=== PATIENT | female | born 1995 | race Caucasian/White ===

== ENCOUNTER 2021-12-25 16:56 | Inpatient (IN) | payer BC, SELFPAY ==
[2021-12-25 17:26] VITALS: BP 117/68; PULSE 93
[2021-12-25 17:27] VITALS: RESP 14; TEMP 36.6
[2021-12-25 17:35] VITALS: BMI 31.1
--- NOTE | 2021-12-25 17:58 | PM.OBHPLI ---
OB - H&P: HPI Labor/Induction History of Present Illness Time Seen by Provider: 17:30 Date Seen: 12/25/21 Chief Complaint: The patient is a 26 year old 1 para 0 at 41 6/7 weeks gestation by 9wk US not c/w LMP, who presents for postdates cervical ripening/induction. Chief complaint: Induction of Labor : 1 Para: 0 Narrative: Bibi Alvarez is a 26 year old 1 para 0 at 41 6/7 weeks gestation by 9wk US not c/w LMP, who presents for postdates cervical ripening/induction. itself has overall been uncomplicated except she was noted to be anemic in first trimester with low B12 and B12 supplement started with improvement. Iron deficiency anemia developed in 3rd trimester and started on iron. History of Present Dating criteria: based on 1st trimester US only care: good care Ultrasounds: normal 1st trimester US, normal mid trimester US and other (She had US at 36 5/7 wks gestation due to measuring greater then dates and EFW 84% and normal SRINIVAS.) Medical complications: none Labs Blood type: O (+) positive Rubella: immune RPR/VDLR: nonreactive GBS status: negative HBsAG: negative Review of Systems Const: Reports: other (no recent cough or cold symptoms); Denies: fever or chills Eyes: Denies: change in vision or blurry vision Neuro: Denies: headache Meds Home Medications and Allergies Home Medications Medication Instructions Recorded Confirmed Type cyanocobalamin (B12)-cobamamide neo sublingual 12/25/21 History 5,000 mcg-100 mcg sublingual lozenge (B12) ferrous sulfate 325 mg (65 mg mg 12/25/21 History iron) tablet (FeroSul) vit no.95-ferrous 1 tab PO DAILY 12/25/21 12/25/21 History fumarate 28 mg-folic acid 800 mcg tablet ( Multivitamins) Allergies Allergy/AdvReac Type Severity Reaction Status Date / Time No Known Drug Allergies Allergy Verified 12/25/21 18:01 OB - H&P: Exam Physical Exam: Vital signs: Temp Pulse Resp BP 97.8 F 93 14 117/68 12/25/21 17:27 12/25/21 17:26 12/25/21 17:27 12/25/21 17:26 Constitutional: Constitutional: no acute distress Routine HEENT Exam: Head: Present normal inspection Eye: Present normal appearance ENT: Present mucous membranes moist and nares patent Routine Respiratory Exam: Respiratory: Present CTA bilaterally Routine Cardiovascular Exam: Cardiovascular: RRR Detailed Labor and Delivery Exam: Patient Gravid: yes Dilation (cm): 1 Effacement (%): 50 Cervix position: posterior Consistency: medium Contraction frequency (min): 5 Comments: she is not feeling contractions Fetus (Single): Station: -3 Monitor Accelerations: Present Monitor Decelerations: None Correction Variability: Average (6-10) Fetus B: heart rate baseline: 120 Routine Extremities Exam: Extremities: Present pedal edema (1+) Routine Psychiatric Exam: Present normal affect, normal thought process, cooperative, good insight and good judgment OB - Problem Based A/P Additional Plan (1) : Status: Acute Plan Previously discussed various induction techniques and variation in courses. Again reviewed and pt and without ?'s. Cervical ripening tonight with Cook catheter. This was placed without difficulty. Plan cytotec once removed in 12 hours or if comes out prior. there is pitocin shortage and I have previously reviewed this with pt in clinic. Delivery/Labor/Induction Plan Plan: induction Induction method: Intracervical balloon catheter
[2021-12-25 18:43] LABS: SARS PCR* Negative SARS-CoV-2 (Negative)
[2021-12-25 19:43] LABS: Basophils Absolute Auto 0.01 K/uL (0.00-0.30); Basophils Percent Auto 0.1 % (0.0-3.0); Eosinophils Absolute Auto 0.03 K/uL (0.00-0.50); Eosinophils Percent Auto 0.3 % (0.0-7.0); Hematocrit 32.3 % (33.0-51.0); Hemoglobin* 11.1 gm/dL (12.0-16.0); Immature Granulocytes Abs Auto 0.05 K/uL (0.00-0.30); Lymphocytes Absolute Auto 1.82 K/uL (0.90-2.90); Lymphocytes Percent Auto 20.6 % (20-44); Mean Corpuscular HGB Conc 34 gm/dL (32-36); Mean Corpuscular Hemoglobin 33 pg (26-34); Mean Corpuscular Volume 95 fL (80-100); Monocytes Percent Auto 8.3 % (0.0-11.0); Neutrophils Percent Auto 70.1 % (42.0-72.0); Platelet Count* 253 K/uL (140-440); RDW Coefficient of Variation % 12.5 % (11.5-15.5); Red Blood Count 3.41 m/uL (4.00-5.20); White Blood Count* 8.84 K/uL (4.50-11.00)
[2021-12-25 19:45] LABS: Slide Review Reflex No
[2021-12-25 20:53] VITALS: BP 107/52; PULSE 83; RESP 18; TEMP 36.5
[2021-12-26] VITALS (56 sets, daily range): BP systolic 82–142; BP diastolic 43–72; PULSE 57–129; RESP 16–18; TEMP 36.3–36.8; O2SAT 92–100
[2021-12-26] MEDS: hydrOXYzine pamoate 25 MG CAPSULE 100 MG PO (02:09)
[2021-12-26] MEDS: MORPHINE 10 MG/ML inj IM (02:10)
[2021-12-26] MEDS: miSOPROStoL 25 MCG/0.25 TABLET VAGINAL ×2 (08:16→11:22)
--- NOTE | 2021-12-26 10:07 | P.OBPN_ITS ---
Subjective Time Seen by Provider: 10:00 Date Seen: 12/26/21 Narrative: Pt is 26yo G1 at 41 wks gestation admitted last evening for cervical ripening with cook catheter. This was placed and removed this morning after 12 hours. pt reports she had significant cramping overnight with catheter. Not really feeling contractions now that catheter is removed. 1st dose vaginal cytotec placed 8:16am per chart. Objective Vital Signs: Last Vital Signs Temp 98.3 F 12/26/21 08:14 Pulse 112 H 12/26/21 08:14 Resp 16 12/26/21 08:14 BP 112/67 12/26/21 08:14 Pelvic Exam Comments: per nursing notes, last check prior to cytotec /-3 Contractions Monitor mode: External Contraction Frequency: q5-7, pt not really feeling contractions Contraction pattern: Irregular Contraction intensity: Mild Assessment Assessment: induction ongoing Station: -3 Status: Category l Heart Rate Baseline: 130 Penitentiary Variability: Moderate (6-25) Monitor Accelerations: Present Monitor Decelerations: None Plan Plan: continue with induction with cytotec protocol. discussed with pt and and all ?'s answered.
[2021-12-26] MEDS: fentaNYL 100 MCG/2 ML inj IVP ×2 (21:19→22:12)
[2021-12-26] MEDS: SODIUM CHLORIDE 0.9 % (FLUSH) 10 ML SYRINGE IVF (21:23)
--- NOTE | 2021-12-26 21:48 | P.OBPN_ITS ---
Subjective Time Seen by Provider: 21:40 Date Seen: 12/26/21 Narrative: 26yo G1at 41wks gestation here for postdates induction. Cook catheter placed last night and removed this morning. She recieved cytotec x 2 doses and began jorge luis frequently enough she did not meet criteria for 3rd dose. Pt continued to get more uncomfortable reporting increased intensity with contractions throughout the day. There is Pitocin shortage so use is being reserved for certain scenarios absolutely necessary. Since she appeared to be transitioning with increasing contraction intensity and frequency, we continued monitoring. Pt had been slowly changing and anticipated into active labor but now is still 5cm. Discussed AROM and pt in agreement. She did request fentanyl first. see below. Objective Exam: Pt clearly uncomfortable with contractions, on hands and knees breathing through and moaning with contractions. comfortable between. Vital Signs: Last Vital Signs Temp 98.0 F 12/26/21 17:52 Pulse 85 12/26/21 21:09 Resp 16 12/26/21 14:18 BP 106/59 L 12/26/21 21:09 Pulse Ox 98 12/26/21 21:29 Pelvic Exam Dilation (cm): 5 Effacement (%): 80 Station: -2 Comments: stretchy Contractions Monitor mode: External Contraction Frequency: pt on hands and knees so ctxs not picking up great but appear q3 Contraction pattern: Irregular Contraction intensity: Strong/Firm (per nursing palpation) Assessment Station: -3 Status: Category l Heart Rate Baseline: 130 Crackling Press Operator Variability: Moderate (6-25) Monitor Accelerations: Present Monitor Decelerations: Variable Tracing Comments: brief minimal variability after fentanyl, now back to moderate variability Plan Plan: AROM performed with clear fluid. Discussed pain control, pt requesting epidural and anesthesia notifed. All ?'s answered
[2021-12-26] MEDS: LIDOCAINE 2% (PF) 5 ML VIAL EPIDURAL (22:15)
[2021-12-26] MEDS: ROPIVACAINE 0.2 % PF 10 ML INJ 20 MG EPIDURAL (22:15)
[2021-12-26] MEDS: ROPIVACAINE 0.2% 100 ml 100 ML 12 MG EPIDURAL (22:15)
--- NOTE | 2021-12-26 22:41 | PM.ANBPRC ---
[facility] Medical History (Updated 12/25/21 @ 18:15 by Minda Cortez DO) No significant medical problems Surgical History (Updated 12/25/21 @ 18:06 by Minda Cortez DO) No history of previous surgery Social History (Updated 12/25/21 @ 18:10 by Minda Cortez DO) Narrative: . 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 [email or web address] Lives in [place] No alcohol, tobacco or drug use Smoking Status: Never smoker Meds Home Medications and Allergies Home Medications Medication Instructions Recorded Confirmed Type cyanocobalamin (B12)-cobamamide 1 neo sublingual DAILY 12/25/21 12/26/21 History 5,000 mcg-100 mcg sublingual lozenge (B12) ferrous sulfate 325 mg (65 mg 325 mg PO DAILY 12/25/21 12/26/21 History iron) tablet (FeroSul) vit no.95-ferrous 1 tab PO DAILY 12/25/21 12/25/21 History fumarate 28 mg-folic acid 800 mcg tablet ( Multivitamins) Allergies Allergy/AdvReac Type Severity Reaction Status Date / Time No Known Drug Allergies Allergy Verified 12/25/21 18:01 Results Vital Signs Vital Signs: Last Vital Signs Temp 97.5 F L 12/26/21 21:00 Pulse 97 12/26/21 22:41 Resp 16 12/26/21 14:18 BP 89/44 L 12/26/21 22:41 Pulse Ox 96 12/26/21 22:38 Weight: 87.498 kg Height: 167.64 cm Anesthesia Procedures Epidural Insertion Patient Location: OB Start Time: 22:00 Stop Time: 22:42 Start Date: 12/26/21 Stop Date: 12/26/21 Reason for Block: procedure for pain Patient Position: sitting Performed By: Mahad Spear Preanesthetic Checklist: IV checked, risks and benefits discussed, surgical consent, monitors and equipment checked, pre-op evaluation, timeout performed and anesthesia consent Prep: chlorhexidine gluconate Monitoring: blood pressure monitoring, continuous pulse oximetry and heart rate Approach: midline Vertebral Space: lumbar (1-5) Needle Type: Tuohy needle Injection Technique: continuous catheter Needle gauge: 17 Needle Length (cm): 10 cm Needle Insertion Depth (cm): 7 Catheter Gauge: 19 Catheter Type: multi-orifice Catheter at skin depth (cm): 13 Test Dose Result: negative and lidocaine 1.5% with epinephrine 1 to 200,000
[2021-12-26] MEDS: PHENYLEPHRINE 100 MCG/ML SYRINGE IVP ×4 (22:42→23:40)
[2021-12-26] MEDS: ePHEDrine sulfate 5 MG/ML inj 10 MG IVP ×2 (22:54→22:59)
--- NOTE | 2021-12-26 23:01 | PM.OBPNL ---
Subjective Time Seen by Provider: 23:02 Date Seen: 12/26/21 Narrative: pt received epidural and immediately after became hypotensive to 89/44 and then developed heart tone decel which was prolonged and down to jose alejandro of 80 for a second and then remained in 90-100 range for approximaltely 5 min. Bp during this time was checked as decel was first decreasing and was 82/43. She was placed on left side, given IVF bolus, 2 doses phenylephrine. FHT improved to 90-100 and about [address] through 5 min period went up to 110 for 10 sec but then came back down to 90's range. she was switched to right side during this time and given 3rd phenylephrine and pseudoephedrine. FHT's did improve into 130's. I checked her cervix and cervix is now coming into more mid position but overall unchanged at 5/80%. Objective Exam: pt comfortable with epidural see above and below notes Vital Signs: Last Vital Signs Temp 97.5 F L 12/26/21 21:00 Pulse 87 12/26/21 22:59 Resp 16 12/26/21 14:18 BP 110/66 12/26/21 22:59 Pulse Ox 100 12/26/21 22:58 Comments: see above Pelvic Exam Dilation (cm): 5 Effacement (%): 80 Station: -2 Contractions Monitor mode: External Assessment Assessment: induction ongoing Status: Category l (now after decel as above had improved and back to being reactive) Heart Rate Baseline: 130 Skilled Nursing Variability: Moderate (6-25) Monitor Accelerations: Present Monitor Decelerations: Variable Plan Plan: Will confirm FHT remain improved and if so, start pitocin. There is a pitocin shortage so we are not using immediately as we typically would but at this point we need to get pt into active labor. Discussed with pt and RN. All ?'s answered.
[2021-12-26] MEDS: OXYTOCIN 30 unit/500 ML in NS 30 UNIT/500 ML BAG IVPB (23:18)
[2021-12-26] MEDS: LACTATED RINGERS 1000 ML 1,000 ML 125 ML IV (23:31)
--- NOTE | 2021-12-26 23:46 | PM.OBPNL ---
Subjective Time Seen by Provider: 11:40 Date Seen: 12/26/21 Narrative: Pitocin started 2317. contractions not always flower picker well and close together q2min at time so I went into room to discuss placing IUPC for better pitocin adjustment and monitoring when pt developed 3 recurrent late decels in a row, she was turned to right side more as was 1/2 on back/1.2 right. BP checked and 95/52, phenylephrine given. FHT's improved. IUPC placed. cervix unchanged except head now applied better to cervix. Will adjust pitocin for adequate MVU's as FHT's tolerate. Discussed with pt and all questions answered. Plan discussed with RN. Objective Vital Signs: Last Vital Signs Temp 97.4 F L 12/26/21 23:00 Pulse 83 12/26/21 23:45 Resp 16 12/26/21 14:18 BP 109/56 L 12/26/21 23:45 Pulse Ox 100 12/26/21 23:43 Pelvic Exam Dilation (cm): 5 Effacement (%): 80 Station: -2 Contractions Monitor mode: External Assessment Labor Progress: see above Plan Plan: see above
[2021-12-27] VITALS (61 sets, daily range): BP systolic 91–132; BP diastolic 51–76; PULSE 62–120; RESP 16; TEMP 36.4–37; O2SAT 90–100
--- NOTE | 2021-12-27 00:31 | PM.OBPNL ---
Subjective Time Seen by Provider: 00:30 Date Seen: 12/27/21 Narrative: Pitocin started and pt developed minimal variablity with recurrent late decels without accels. With the pitocin, MVU's 145-185. Pitocin stopped and late decels resolved and strip now reactive with moderate variablity, +accels and no decels. MVU's 120. Discussed situation with pt. I called and reviewed with OB surgeon carton stamper who agreed with restarting pitocin and monitoring. Discussed possibility of c/s with pt if baby not tolerate pitocin to help achieve cervical change. All ?'s answered. Objective Exam: see above Vital Signs: Last Vital Signs Temp 97.4 F L 12/26/21 23:45 Pulse 105 H 12/27/21 00:29 Resp 16 12/26/21 14:18 BP 109/66 12/27/21 00:29 Pulse Ox 100 12/27/21 00:28 Comments: see above Pelvic Exam Station: - Contractions Monitor mode: External Contraction pattern: Regular Assessment Station: -3 Status: Category l (now after decel as above had improved and back to being reactive) Heart Rate Baseline: 130 Tracing Comments: see above Plan Plan: see above
--- NOTE | 2021-12-27 02:00 | PM.OBPNL ---
Subjective Time Seen by Provider: 01:55 Date Seen: 12/27/21 Narrative: recurrent late decelerations with low dose pitocin. inadequate MVU's. Pt tried multiple position changes. Cervix unchanged and still 5cm. Objective Exam: comfortable, resting Vital Signs: Last Vital Signs Temp 97.4 F L 12/26/21 23:45 Pulse 74 12/27/21 01:51 Resp 16 12/26/21 14:18 BP 105/59 L 12/27/21 01:51 Pulse Ox 100 12/27/21 01:58 Pelvic Exam Dilation (cm): 5 Effacement (%): 80 Station: -2 Comments: unchanged Contractions Monitor mode: External Contraction Frequency: q2-3min Contraction pattern: Regular Contraction intensity: Strong/Firm (per nursing palpation) Assessment Assessment: induction ongoing Station: -3 Status: Category ll Heart Rate Baseline: 130 Poultry Field Service Technician Variability: Minimal (3-5) Monitor Accelerations: Episodic Monitor Decelerations: Recurrent Tracing Comments: With pitocin going at 2, FHT's 130's minimal variability, had accel initially after first late deceleration but then recurrent lates without accels present. Pitocin turned off and variability immediately improved to moderate, +accels and recurrent late decelerations resolved. Plan Plan: Recurrent late decelerations with low dose pitocin. Inadequate MVU's and no cervical exchange operator several hours. pt has had cook catheter, cytotec, AROM and fetus intolerant to pitocin. Pt tried multiple position changes. Cervix unchanged and still 5cm. Discussed with pt and recommended c/s as unable to get pt into active labor as intolerance of pitocin and inadequate MVU's. I called OB surgeon television cameraman Dr Tristan who agrees with performing c/s and is on her way in. OR crew notified by staff. pt given opportunity to ask questions and reports no questions. She is in agreement with plan.
--- NOTE | 2021-12-27 02:35 | P.OBCN_ITS ---
OB - CN: HPI Date of Consult Date Seen: 12/27/21 Consult date: 01/19/22 Requesting Physician: Minda Cortez DO Primary Care Provider: Not a Local Provider Consult Narrative Reason for consult: nonreassuring FHTs Narrative: The patient is a 26 year old G 1 P 0 at 41 1/7 weeks gestation that was admitted to the Center on 12/25/21 for IOL due to post term dates. I was consulted due to monitoring showing recurrent late decelerations and patient still far from delivery. IOL started with placement of cook catheter, cytotec today during the day, AROM and currently unsuccessful trial of oxytocin x2. Currently NST reactive, but as soon as they turn on oxytocin baby starts to have late decelerations. Patient has remained at 5cm cervical dilation. History of Present Dating criteria: based on 1st trimester US only care: good care Ultrasounds: normal 1st trimester US History History 1 Elective abortions Para 1 Spontaneous abortions Hx # Term Pregnancies Ectopic pregnancies Hx # Pregnancies Multiple births Number of Living Children 0 Labs Blood type: O (+) positive Rubella: immune RPR/VDLR: nonreactive GBS status: negative HBsAG: negative OB Labs: Lab Assessment Start: 12/25/21 17:06 Freq: ONCE Status: Complete Protocol: PC.OBGBS Activity Type Activity Date Activity User E-sign Co-sign Detail Recorded Client Recorded Date Recorded By Document 12/25/21 17:34 LP [id number] 12/25/21 17:34 LP 12/25/21 17:34 Lab Assessment GBS neg Previous Milam with Invasive GBS No Does Patient Meet Criteria No No Treatment Needed OK Maternal Blood Type O Maternal RH Factor Positive Evaluate Maternal Rubella Immune Status Immune Hepatitis B Surface Antigen Negative Maternal HIV Status Negative Maternal Syphillis (RPR) Status Negative Are Labs Available Yes PFSH PFS Medical History (Updated 01/06/22 @ 00:01 by ) No significant medical problems Surgical History (Updated 01/06/22 @ 00:01 by ) No history of previous surgery Social History (Updated 12/25/21 @ 18:10 by Minda Cortez DO) Narrative: . 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 [place] No alcohol, tobacco or drug use Smoking Status: Never smoker Meds Home Medications and Allergies Home Medications Medication Instructions Recorded Confirmed Type cyanocobalamin (B12)-cobamamide 1 neo sublingual DAILY 12/25/21 12/26/21 History 5,000 mcg-100 mcg sublingual lozenge (B12) vit no.95-ferrous 1 tab PO DAILY 12/25/21 12/25/21 History fumarate 28 mg-folic acid 800 mcg tablet ( Multivitamins) Allergies Allergy/AdvReac Type Severity Reaction Status Date / Time No Known Drug Allergies Allergy Verified 12/25/21 18:01 OB - H&P: Exam Physical Exam: Vital signs: Temp Pulse Resp BP Pulse Ox 98 F 74 16 105/59 L 100 12/27/21 01:45 12/27/21 01:51 12/26/21 14:18 12/27/21 01:51 12/27/21 02:03 OB - CN: A/P Assessment and Plan (1) : Status: Resolved Plan Agree with delivery. Discussed procedure with patient, informed consent reviewed discussed risk sof surgery such as bleeding, infection, damage to nearby organs, blood clots. Patient in agreement with surgery. Will proceed.
[2021-12-27] MEDS: LACTATED RINGERS 1000 ML 1,000 ML 125 ML IV ×2 (02:45→04:58)
[2021-12-27] MEDS: OXYTOCIN 30 unit/500 ML in NS 30 UNIT/500 ML BAG 100 UNIT IVPB (03:07)
--- NOTE | 2021-12-27 04:16 | P.OBPRC_ITS ---
Procedure Pre-op/Post-op diagnoses: Pre-Op/Post-Op Diagnoses Operation Date: 12/27/21 02:30 <No data on this case meets the specified criteria> Procedure Done: only Procedure Details: Procedures Operation Date: 12/27/21 02:30 Actual Procedure Side Surgeon p Section Leeanne Farley MD Estimated blood loss (mL): 1,500 Disposition: floor Anesthesia type: Epidural Complications: dystocia upon delivery requiring vacuum assistance. hemorrhage- uterine atony OB Delivery Proc Additional Procedures Tubal Ligation at the time of : No Procedure Details: PREOPERATIVE DIAGNOSES: 1. Intrauterine at 41 1/7 weeks' gestation. 2. intolerance of labor, far from delivery POSTOPERATIVE DIAGNOSES: 1. Intrauterine at 41 1/7 weeks' gestation. 2. intolerance of labor, far from delivery 3. dystocia, vacuum assistance needed 4. hemorrhage-uterine atony NAME OF PROCEDURE: Primary low transverse vacuum assisted delivery ANESTHESIA: Epidural COMPLICATIONS: dystocia upon delivery, hemorrhage ESTIMATED BLOOD LOSS: 1500mL DRAINS: Soto to gravity. FINDINGS: Live-born male , OA presentation, Apgars 7 and 7 at 1 and 5 minutes respectively. weight 9 lb 2 oz. PROCEDURE: After obtaining informed consent, the patient was taken to the operating room where epidural anesthesia was found to be adequate. She was prepared and draped in the normal sterile fashion in the dorsal supine position with a leftward tilt. A Pfannenstiel skin incision was made with a scalpel about 2 cm above symphysis pubic bone, 8-10 cm in length. This incision was carried down to the underlying layer of fascia with the Bovie and scalpel. The fascia was incised in the midline and the incision extended laterally. The rectus muscles were then in the midline and blunt entrance to the peritoneum obtained easily. The Shahram O retractor was then placed into the incision. The lower uterine segment was then incised in a transverse fashion with the scalpel. Upon entry into the uterus, clear amniotic fluid was noted. The uterine incision was extended cephalo caudally with blunt finger fractionation. occiput was noted to be OA and assistance made to turn head to OT position, with fundal pressure, return to OA presentation and no further movement of head. This was attempted on 2 occasions unsuccessfully, I felt like I had adequate space, but to further make space and liberate any additional tension the left rectus muscle was opened up about 1cm with bandage scissors. Again, I tried to flip baby to OT position as well as the body, but with fundal pressure baby flexed head and turned back to OA presentation. Decision was made to utilize a vacuum for assistance, this was placed at the presenting occiput and suction created to the green area of pressure and with 1 pull delivery of the head was obtained with further assistance the rest of the body delivered atraumatically. Vacuum pressure was released right away.The cord was doubly clamped and cut, and the infant was handed off the field to [facility] for evaluation. Please see Dr. Cortez for details of evaluation. The placenta was delivered spontaneously with umbilical cord traction and fundal massage. The uterus was cleared of all clots and debris. Uterine atony identified. IV Pitocin was already running, Methergine was given x2. The uterine incision was reapproximated in a running locking fashion with a 0 Vicryl suture. A 2nd layer of the same suture was used to imbricate in horizontal fashion. On the left side of the hysterotomy there was some persistent bleeding that was cristopher ated with interrupted sutures of 2-0 chromic. Hemostasis was secured. The gutters were inspected and cleared of blood clot. All instruments and retractors were removed. The subfascial tissues were carefully inspected and hemostasis assured. Peritoneum was re approximated utilizing 3-0 Vicryl. The fascia was reapproximated in a running fashion with a looped 0 Vicryl suture. The subcutaneous tissues were inspected and hemostasis was assured. The subcutaneous fat layer was reapproximated with interrupted sutures of 3-0 Vicryl. The skin was closed in a subcuticular fashion with 4-0 Vicryl. LiquiBand and dressing were applied. The patient tolerated the procedure well. Sponge, lap, needle, and instrument counts were reported as correct x2. The patient was taken to the recovery room, awake, and in stable condition. She did receive 2 grams of IV Ancef preoperatively, 1 g of TXA was also given at the end of case. QBL at the end of procedure was 1000mL, after drape removal, uterine massage confirmed a well contracted uterus at 1 below umbilicus, but a large amount of blood clots and with what was seen at the bed, I raised QBL/EBL to 1500mL. No persistent heavy bleeding noted. I will order a follow up hemoglobin later today. Mom and baby boy stable at the end of case at the OR. Will follow up closely.
--- NOTE | 2021-12-27 04:21 | W.ANESCHARGE ---
Anesthesia Charges Start Date/Time Anesthesia Start Date: 12/27/21 Anesthesia Start Time: 02:45 Stop Date/Time Anesthesia Stop Date: 12/27/21 Anesthesia Stop Time: 04:15 Summary Emergency: Yes
[2021-12-27] MEDS: KETOROLAC 30 MG/ML inj IVP (09:30)
[2021-12-27 11:45] LABS: Hemoglobin* 9.9 gm/dL (12.0-16.0)
[2021-12-27] MEDS: IBUPROFEN 600 MG TABLET PO ×2 (15:39→22:33)
[2021-12-27] MEDS: ACETAMINOPHEN 500 MG TABLET 1000 MG PO (18:38)
[2021-12-28 04:36] VITALS: BP 90/56; PULSE 73; RESP 16; TEMP 36.9; O2SAT 96
[2021-12-28] MEDS: IBUPROFEN 600 MG TABLET PO ×3 (04:44→21:46)
[2021-12-28 07:00] LABS: Hemoglobin* 8.4 gm/dL (12.0-16.0)
--- NOTE | 2021-12-28 08:11 | P.OBPN_ITS ---
OB - PN: A/P Assessment and Plan (1) Status post delivery: Status: Acute (2) Acute posthemorrhagic anemia: Status: Acute (3) Lactating mother: Status: Acute (4) examination following delivery: Status: Acute Plan 26 yo G1 now P1 Post- Day 1 - routine post- care Acute Anemia r/t intrasurgical hemorrhage of 1500ml - Iron 325mg daily (pt prefers to take her own) - support if needed Plant to discharge home tomorrow Plan day: 1 Plan: routine postop care OB - PN: Subj Subjective Time Seen by Provider: 08:12 Date Seen: 12/28/21 Interval history: Bibi is a 26 year old G 1 now P 1 at 41 0/7 weeks gestation that was admitted to the Center on 12/25/21 for labor. She had an primary delivery r/t arrest of dilation, complicated by 1500 EBL intrasurgical hemorrhage. Denies any light headedness, shortness of breath or nausea. She delivered a viable male , Lazaro. She is breast feeding. the patient has done well. Patient comments: no complaints, pain well controlled, tolerating diet and flatus present [place] status: and doing well feeding status: exclusively OB - PN: Obj Exam Physical Exam: Vital signs: Temp Pulse Resp BP Pulse Ox O2 Del Method 98.4 F 73 16 90/56 L 96 12/28/21 04:36 12/28/21 04:36 12/28/21 04:36 12/28/21 04:36 12/28/21 04:36 12/28/21 04:36 Constitutional: Constitutional: no acute distress Routine HEENT Exam: Head: Present normocephalic Eye: Present normal appearance Routine Neck Exam: Neck: Present full ROM Routine Respiratory Exam: Respiratory: Present CTA bilaterally Routine Cardiovascular Exam: Cardiovascular: Present RRR Routine Abdominal Exam: Abdominal: Present hypoactive bowel sounds (present but quiet), soft and tenderness Fundus: Present firm (U/U) Routine Exam: Comments: Deferred Routine Extremities Exam: Extremities: Present full ROM; Absent pedal edema Routine Back/Spine/Pelvis Exam: Back/Spine: Present full ROM Routine Skin Exam: Skin: Present dry and warm; Absent rash Routine Neurological Exam: Neurological: Present alert and oriented X3 Detailed Neurological Exam: Coma Scale: Eye Opening: Spontaneous (4) Verbal Response: Orientated (5) Routine Psychiatric Exam: Psychiatric: Present normal affect, normal thought process, cooperative, good insight and good judgment Wound Management: Method: adhesive Examination: Present clean, dry and intact; Absent bloody drainage or serosanguinous drainage OB - PN: Obj Data Labs Labs: Laboratory Results - last 24 hr 12/27/21 12/28/21 11:40 06:51 Hgb 9.9 L 8.4 L
[2021-12-28] MEDS: DOCUSATE SODIUM 100 MG CAPSULE PO (08:59)
[2021-12-28] MEDS: FERROUS SULFATE 325 MG TABLET PO (08:59)
[2021-12-28 09:05] VITALS: BP 95/63; PULSE 103; RESP 16; TEMP 36.4; O2SAT 100
[2021-12-28] MEDS: SIMETHICONE 80 MG TAB.CHEW PO (11:51)
[2021-12-28] MEDS: OXYCODONE 5 MG TABLET PO ×3 (12:19→21:46)
[2021-12-28 16:00] VITALS: BP 101/64; PULSE 102; RESP 16; TEMP 37; O2SAT 96
[2021-12-28] MEDS: ACETAMINOPHEN 500 MG TABLET 1000 MG PO (17:06)
[2021-12-29 01:34] VITALS: BP 103/62; PULSE 107; RESP 16; TEMP 36.9; O2SAT 96
[2021-12-29] MEDS: ACETAMINOPHEN 500 MG TABLET 1000 MG PO (03:33)
[2021-12-29] MEDS: OXYCODONE 5 MG TABLET PO (03:33)
[2021-12-29 08:00] VITALS: BP 98/59; PULSE 95; RESP 16; TEMP 36.2; O2SAT 98
[2021-12-29] MEDS: FERROUS SULFATE 325 MG TABLET PO (08:03)
[2021-12-29] MEDS: DOCUSATE SODIUM 100 MG CAPSULE PO (08:03)
[2021-12-29] MEDS: IBUPROFEN 600 MG TABLET PO (08:17)
--- NOTE | 2021-12-29 08:21 | P.DS_ITS ---
DS: Providers Provider Date Seen: 12/29/21 Date of admission: 12/25/21 16:56 Primary care physician: Leeanne Farley MD Admitting Clinician: Minda Cortez DO Attending Physician on discharge: Maryan Coronel CNM Date of Discharge: 12/29/21 DS: Diagnosis Discharge Diagnosis (1) examination following delivery: Status: Acute (2) Status post delivery: Status: Acute (3) Lactating mother: Status: Acute (4) Acute posthemorrhagic anemia: Status: Acute Exam Const: Vital Signs, click to edit/add: Vital Signs - 24 hr 12/28/21 09:05 12/28/21 16:00 12/29/21 01:34 Temperature 97.6 F 98.6 F 98.5 F Pulse Rate [Left P ulse Oximeter] 103 H 102 H 107 H Respiratory Rate 16 16 16 Blood Pressure [Ri ght Arm] 95/63 101/64 103/62 Pulse Oximetry 100 96 96 Oxygen Delivery Me thod Room Air Room Air Room Air Documenting provider has reviewed patient's vital signs: yes Common normals: no apparent distress, oriented x3, healthy appearing and alert HENMT: Common normals: normocephalic Head and scalp: normocephalic Eye: Common normals: PERRL Pupil: PERRL Neck & C-Spine: Common normals: full ROM and supple Chest: Common normals: inspection of chest normal Resp: Common normals: normal respiratory effort and clear to auscultation bilaterally Auscultation: clear to auscultation bilaterally Cardio: Common normals: regular rate and regular rhythm Rate: regular rate Rhythm: regular rhythm GI: Common normals: soft to palpation Inspection: incision (Lower abdominal transverse: Glue intact, well approximated; clean and dry) Palpation: soft : Uterus: U/1 Lochia: scant Back & Pelvis: Common normals: thoracic and lumbar spine normal to inspection Extremity: Common normals: normal to inspection and full ROM Neuro: Common normals: oriented x3 Sensorium/orientation: alert Speech: speech normal Psych: Common normals: mental status grossly normal, thought process normal, speech normal and activity/motor behavior normal Speech: normal speech Thought process: normal thought process Skin: Common normals: no rashes or lesions noted General skin exam: no rashes or lesions noted OB - DS: Summary Hospital Course Hospital Course: The patient is a 26 year old G 1 now P1 at 41 weeks gestation that was admitted to the Center on 12/25/21 for post-dates IOL. She had an complicated delivery with difficult extraction of fetus and intraprocedure hemorrhage. She delivered a viable male infant. She is breast feeding. the patient has done well. ?Vitals have been stable.? She has remained afebrile.? She is voiding without difficulty.? She is passing gas and has not yet had a bowel movement.? She is ambulating and denies any dizziness.? She is planning condoms for control.? Peripartum Data Procedures: Procedures Operation Date: 12/27/21 02:30 Actual Procedure Side Surgeon p Section Leeanne Farley MD complications: none [place] Gender: Male Infant Discharge Plan: Home Status at Discharge Functional status at discharge: independent ambulation Overall status at discharge: patient is progressing back to baseline Time Spent with Patient Time attestation: Total time spent providing and/or coordinating discharge services: Time spent: Less than 30 minutes Discharge Plan Discharge Disposition: Home, Self-Care Date of Admission: 12/25/21 16:56 Attending Provider on Discharge: Maryan Coronel Primary Care Provider: Leeanne Farley Condition: Stable Anticipated Discharge Date/Time: 12/29/21 11:00 Discharge Medications: New docusate sodium 100 mg Capsule 100 mg PO DAILY Qty: 90 0RF ibuprofen 600 mg Tablet 600 mg PO Q6H PRN (Reason: Pain) Qty: 60 0RF oxycodone 5 mg Tablet 5 - 10 mg PO Q4H PRN (Reason: Pain) Qty: 20 0RF acetaminophen 500 mg Tablet 1,000 mg PO Q6H PRN (Reason: Pain) Qty: 0 0RF Continued PNV cmb#95-ferrous fumarate-FA [ Multivitamins] 28 mg iron- 800 mcg tablet 1 tab PO DAILY B12 5,000-100 mcg lozenge 1 neo sublingual DAILY ferrous sulfate [FeroSul] 325 mg (65 mg iron) tablet 325 mg PO DAILY Qty: 60 0RF Discharge Orders: Discharge Order (Routine); Ordered 12/29/21 Ordered By: Maryan Coronel Patient Education: OB /Breast Feeding Additional Instructions: Discharge instructions were reviewed with the patient including signs and symptoms of infection and home going medications Lifting Restrictions: 20 pounds for 6 weeks No not submerge incision under water X 2 weeks? Nothing vaginally for 6 weeks: no tampons or intercourse Do not drive while taking narcotic pain medication(s) Off Work or School for 8 weeks 2-week visit: incision check, discuss feeding concerns, review control options and screen for anxiety/depression. 6-week visit for an annual exam. consultation services are available to all mothers and babies for the first year after delivery.? To make an appointment, please call [phone]. Discharge Diet: Regular Follow Up Appointments: Minda Cortez DO [Staff Physician] - (2 weeks and 6 weeks ) Forms: [employer] Info Instructions
== END 2021-12-29 12:20 | disposition home or self-care (01) | DRG 540 ==
PROVIDERS: Admitting Provider Family Medicine; PCP Obstetrics & Gynecology; Visit Provider Family Medicine
PROC: (CPT 59514; principal; 2021-12-27 02:15)
DX: O48.0 Post-term pregnancy (principal); O76 Abnormality in fetal heart rate and rhythm complicating labor and delivery; O66.0 Obstructed labor due to shoulder dystocia; O72.1 Other immediate postpartum hemorrhage; O99.02 Anemia complicating childbirth; D62 Acute posthemorrhagic anemia; I95.89 Other hypotension; D50.9 Iron deficiency anemia, unspecified; Z3A.41 41 weeks gestation of pregnancy; Z37.0 Single live birth
CPT/HCPCS: 1967; 1968; 36415; 59200; 85018; 85025; 86850; 86900; 86901; 87635; 99140; A9270; C1726; J1100; J1885; J2210; J2270; J2274; J2370; J2405; J2795; J3010; J7120

== ENCOUNTER 2022-01-01 10:55 | Outpatient (CLI) | payer BC, SELFPAY ==
--- NOTE | 2022-01-01 13:02 | W.PM.LAC.MC ---
Consult Note - Mom Date of Visit Date of visit: 01/12/22 mobile sales consultant: Freda Hazel Visit Code: Visit Patient's Information Phone number: [phone] : 1 Para: 1 Allergies No Known Drug Allergies Allergy (Verified 12/25/21 18:01) Mother's Medical History: Medical History (Updated 01/06/22 @ 00:01 by ) No significant medical problems Type of Contraception: condoms Delivery Information Delivery type: Primary C/S; Labored (with vacuum and post hemorrhage) Weeks Gestation: 41.1 Gestational Age: AGA Weight: 4.155 kg Discharge Weight: 3.892 kg Baby's Information Baby's Age at Visit: 5 days Baby's Provider or Clinic: Dr. Cortez Jaundice: Yes (to BLE, TSB = 19.6) Reason for Consult Reason for Consult: difficulty latching, TSB Past Experience Past Experience: No Current Frequency of Day Feedings: every 2 hours around the clock for the past 24 hours d/t elevated bilirubin Both Breasts: Yes Suck: sleepy Latch: fairly wide Length of Time: 20 - 40 minutes Pumping Pumping: Yes (mom has pumped a few times since the visit yesterday (Spectra pump)) Quantity Pumped: 1 - 2 oz Supplementing EMB Supplement: Yes (dad supplemented every 2 hours overnight with 1 oz EBM) Formula Supplement: No Baby Elimination Number of Wet Diapers a Day: at least every feeding Number of BM a Day: about every other feeding: brown-green in color Breast/Nipple Condition Breast Information: WNL Engorgement: No Maternal Nipple Condition - Left: Common Nipple Maternal Nipple Condition - Right: Common Nipple Sore Nipples: No (resolved and nipples are scabbed) Onsite Pre-Feed weight: 3.802 kg Post-Feed weight: 3.844 kg Milk Transferred (mL): 42 Pre-Nursing Left Nipple: Within Normal Limits Pre-Nursing Right Nipple: Within Normal Limits Post-Nursing Left Nipple: Within Normal Limits Post-Nursing Right Nipple: Within Normal Limits Assessments/Interventions Assessments/Interventions: Met with mom and this now 5 day old ex- term AGA baby for consult.? Baby was seen on 12/31 and was 9% below BW with a TSB = 18.6.? Mom reports after that visit she was instructed to nurse every two hours.? She did this during the day but POC also supplemented with some frozen EBM.? Overnight mom pumped a few times getting 1 - 2 oz total while dad gave 1 oz EBM by bottle.? Mom reports nursing was initially uncomfortable and she had some bilateral nipple damage, but they are beginning to heal and nursing is becoming more comfortable. Breasts WNL- symmetrical with rounded lower quadrants, intramammary distance is < 1.5 inches.? Nipples are everted and they don't flatten or retract with compression; scabbing observed bilaterally.? Baby has gained 30 grams since his visit on 12/31 and is now 8% below BW at 5 DOL.? Per POC he has a slight preference for turning his head to the left but has equal ROM when moving his extremities.? His palate is WNL.? His upper frenulum is a little tight and his lower frenulum may be a little anterior.? He's able to extend his tongue past the gum line and the tongue has good lateral movement. He's jaundiced to his BLE. TSB = 19.6, per bili tool the threshold for PTX = 21.8. After a few attempts and with some verbal coaching to support her breast, mom latched baby comfortably to both sides.? He was sleepy at the breast but she did a good job of keeping him awake and nutritively suckling.? Baby nursed on both sides for about 30 minutes total and transferred 42 ml. Plan: 1.? Nurse baby ALD- ok to go 2 - 3 hours, but not to go past three.? Encouraged mom to offer both sides at each feeding and to work to keep him awake and actively nursing. 2. Supplement after any nursing session where he doesn't seem satisfied, making sure he's supplemented after 2 - 4 nursing sessions every 24 hours. 3. Pump to empty? every time he's supplemented.? Pump to comfort after nursing sessions if she's uncomfortable. 4. Spoke with Dr. White and baby will f/u on 01/05/[address] Cortez.? Reviewed reasons to bring him to Urgent Care over the weekend. Meds Home Medications and Allergies Home Medications Medication Instructions Recorded Confirmed Type cyanocobalamin (B12)-cobamamide 1 neo sublingual DAILY 12/25/21 12/26/21 History 5,000 mcg-100 mcg sublingual lozenge (B12) vit no.95-ferrous 1 tab PO DAILY 12/25/21 12/25/21 History fumarate 28 mg-folic acid 800 mcg tablet ( Multivitamins) Allergies Allergy/AdvReac Type Severity Reaction Status Date / Time No Known Drug Allergies Allergy Verified 12/25/21 18:01
== END 2022-01-01 10:56 | disposition home or self-care (01) ==
PROVIDERS: PCP Family Medicine; Visit Provider Family Medicine
DX: Z39.1 Encounter for care and examination of lactating mother (principal)
CPT/HCPCS: 99211